=== PATIENT | male | born 1970 | race Caucasian/White ===

== ENCOUNTER 2019-03-31 10:18 | Emergency (ER) | payer OTHER ==
[~2019-03-31] VITALS: Ht 182.9 cm; Wt 104.0 kg
--- NOTE | 2019-03-31 10:53 | NUR ---
awaiting ed provider.
[2019-03-31] MEDS ORDERED: acetaminophen 325mg tablet PO ONE (11:25)
[2019-03-31] MEDS ORDERED: ketorolac trometh inj. 60 MG/2 ML VIAL IM ONE (11:25)
[2019-03-31] MEDS ORDERED: IBUP-1984 PO (13:51)
[2019-03-31] MEDS ORDERED: HYDR-3965 PO (13:51)
[2019-03-31 14:39] VITALS: BP 131/68
== END 2019-03-31 14:41 | disposition home or self-care (01) ==
LOC: ER 10:20
DX: S80.01XA Contusion of right knee, initial encounter (principal); M25.562 Pain in left knee; M25.571 Pain in right ankle and joints of right foot; M25.572 Pain in left ankle and joints of left foot; F17.200 Nicotine dependence, unspecified, uncomplicated; Z60.2 Problems related to living alone; Z98.890 Other specified postprocedural states; V49.9XXA Car occupant (driver) (passenger) injured in unspecified traffic accident, initial encounter; Y93.89 Activity, other specified; Y92.89 Other specified places as the place of occurrence of the external cause; Y99.8 Other external cause status
CPT/HCPCS: 29530; 73564; 96372; 99283; J1885